=== PATIENT | female | born 1990 | race Caucasian/White ===

== ENCOUNTER → 2016-07-14 | Outpatient (CLI) | payer OTHER ==
[~2016-07-14] MED LIST: ACET50TA PO; IBUP80TA PO; VITAPRTA PO
[2016-07-14 15:28] LABS: THYROXINE (T4) 7.8 UG/DL (4.5-12.0)
[2016-07-14 15:42] LABS: ESTRADIOL 57.1 PG/ML; PROLACTIN 6.2 NG/ML
== END ==
LOC: M WUC 13:29
PROVIDERS: ATTEND Advanced Practice Midwife
DX: Z31.61 Procreative counseling and advice using natural family planning (principal)

== ENCOUNTER 2016-08-18 10:58 | Emergency (ER) | payer MEDICAID, OTHER ==
[2016-08-18 11:56] LABS: BASO % 0.4 % (0.0-1.0); EOS # 0.1 K/mm3 (0.0-0.50); EOS % 0.9 % (0.0-3.0); LARGE UNSTAINED CELL # 0.1 K/mm3 (0.0-0.4); LYMPH # 1.1 K/mm3 (1.5-6.5); LYMPH % 15.3 % (24.0-44.0); MEAN CORPUSCULAR HEMOGLOBIN 29.4 pg (27.0-33.0); MEAN CORPUSCULAR HGB CONC 34.5 g/dl (32.0-36.5); MEAN CORPUSCULAR VOLUME 85.3 fl (80.0-96.0); MONO # 0.3 K/mm3 (0.0-0.8); MONO % 4.9 % (0.0-5.0); NEUTROPHILS # 5.4 K/mm3 (1.8-7.7); NEUTROPHILS % 76.5 % (36.0-66.0); PLATELET COUNT, AUTOMATED 375 k/mm3 (150-450); RED CELL DISTRIBUTION WIDTH 11.9 % (11.5-14.5)
[2016-08-18 12:32] LABS: ANION GAP 10 MEQ/L (8-16); BLOOD UREA NITROGEN 9 MG/DL (7-18); CALCIUM LEVEL 8.8 MG/DL (8.5-10.1); CARBON DIOXIDE LEVEL 24 MEQ/L (21-32); CHLORIDE LEVEL 107 MEQ/L (98-107); CREATININE FOR GFR 0.73 MG/DL (0.55-1.02); GLOMERULAR FILTRATION RATE > 60.0 (>60); GLUCOSE, FASTING 96 MG/DL (70-105); HCG, SERUM QUANTITATIVE 2851 MIU/ML; POTASSIUM SERUM 3.8 MEQ/L (3.5-5.1); SODIUM LEVEL 141 MEQ/L (136-145)
--- NOTE | 2016-08-18 13:00 | REP ---
Clinical: Dating and viability. Technique: Transabdominal and transvaginal first trimester obstetrical ultrasound with color Doppler evaluation. Findings: Uterus measures at 8.8 x 4.4 x 5.8 cm and includes a 1 cm cystic structure without yolk sac or pole which may reflect a gestational sac or pseudo gestational sac. Based on MSD of 9 mm gestational age would be 5 weeks 5 days. The maternal ovaries are normal in appearance and vascularity without torsion. Right ovary measures 3.6 x 1.8 x 2.3 cm; RI equal 0.36. Left ovary measures 3.7 x 2.2 x 2.1 cm; RI equals 0.50. No pelvic free fluid. Impression: Empty gestational sac versus pseudogestational sac measuring at 5 weeks 5 days gestational age. Differential diagnosis includes early as well as blighted ovum and less likely ectopic which cannot be excluded. Correlation with serial HCG levels recommended. Signed by Everett Howell MD 08/18/2016 12:50 P
--- NOTE | 2016-08-18 13:15 | EDDOCDS ---
Nurse's Notes [facility] Name: Marylu Morton Age: 25 yrs Sex: Female : 1990 Arrival Date: 08/18/2016 Time: 10:58 Bed PR Private MD: NO PRIMARY PHYSICIAN, . Diagnosis: state-5w5d ON U.S Presentation: 08/18 11:01 Presenting complaint: Patient states: 8 weeks light flow vaginal bleeding mlb1 began yesterday. Risk factors: The patient reports no loss of conciousness prior to arrival. This patient has not had a hysterectomy. This patient has not begun menopause. Adult Sepsis Screening: The patient does not have new or worsening altered mentation. Patient's respiratory rate is less than 22. Systolic blood pressure is greater than 100. Patient has a qSOFA score of 0- Negative Sepsis Screen. Suicide/Homicide risk assessment- the patient denies having any suicidal and/or homicidal ideations and does not present with any other emotional, behavioral or mental health complaints. Status: Patient is not a guest services lead or dependent. Transition of care: patient was not received from another setting of care. 11:01 Acuity: JOVANNY Level 3 mlb1 11:01 Method Of Arrival: Walkin/Carried/Asstd mlb1 Triage Assessment: 11:03 General: Appears in no apparent distress, Behavior is appropriate for age, cooperative. mlb1 Pain: Denies pain. HIV screening NA for this visit Offered previously. : Reports vaginal bleeding that is light flow. Derm: No deficits noted. 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 Vitamin Oral 1 tab once daily - PMHx: none; - PSHx: Adenoidectomy; Tonsillectomy; left ear; - Social history: Smoking status: Patient states former smoker of tobacco. No barriers to communication noted, The patient speaks fluent Maltese, Speaks appropriately for age. - Family history: Not pertinent. - : The pt / caregiver states he / she is not on anticoagulants. Home medication list is obtained from the patient. - Exposure Risk Screening:: None identified. Screenin:13 Screening information is obtained from the patient. Fall risk: No risks identified. mcp Assistance ADL's: requires no assistance with activities of daily living. Abuse/DV Screen: The patient / caregiver reports he/she is: not in a situation that causes fear, pain or injury. Nutritional screening: No deficits noted. Advance Directives: There is no active DNR order. home support is adequate. Assessment: 13:12 General: Appears in no apparent distress, comfortable, Behavior is cooperative. Pain: mcp Denies pain. Neurological: No deficits noted. Respiratory: Airway is patent Respiratory effort is even, unlabored. : deferred to provider Reports vaginal bleeding that is light flow. Derm: Skin is pink, warm & dry. Vital Signs: 11:00 BP 142 / 76; Pulse 118; Resp 18 S; Temp 99.2(O); Pulse Ox 100% on R/A; Weight 61.23 kg gr2 (R); Height 5 ft. 3 in. (160.02 cm) (R); Pain 3/10; 13:13 BP 121 / 77; Pulse 103; Resp 18; Temp 99.6(O); Pulse Ox 95% on R/A; Pain 0/10; mcp 11:00 Body Mass Index 23.91 (61.23 kg, 160.02 cm) gr2 Vitals: 11:00 Log In Time: August 18, 2016 at 11:00. gr2 ED Course: 10:59 Patient visited by Petty Alvarez. gr2 10:59 NO PRIMARY PHYSICIAN, . is Private Physician. gr2 10:59 Patient moved to Waiting gr2 11:01 Patient visited by Petty Alvarez. gr2 11:01 Patient visited by Evert Ramírez, IRASEMA. mlb1 11:01 Patient moved to Pre RCE gr2 11:02 Triage Initiated mlb1 11:04 Patient visited by Evert Ramírez, IRASEMA. mlb1 11:04 Patient moved to Triage 2 mlb1 11:20 Xiomara Ruiz PA-C is PHCP. dt4 11:20 Ida Grimm MD is Attending Physician. dt4 11:20 Patient visited by Xiomara Ruiz PA-C. dt4 11:44 UA Sent. mcp 11:44 Hcg, Serum Quantitative Sent. mcp 11:44 Basic Metabolic Profile Sent. mcp 11:44 CBC with Diff Sent. mcp 11:44 Type & Screen Sent. mcp 11:46 Patient moved to TR8 mcp 11:56 Patient visited by Clarita Shelton, RN. mcp 11:56 Patient moved to TR2 mcp 12:02 Patient moved to Ultrasound eg2 12:28 Patient moved to TR2 eg2 12:35 Patient visited by Syl Wild RN. ck1 12:48 [facility] Payment Agreement was scanned into [employer] and attached to record. lg 12:59 Ajay Day MD is Referral Physician. dt4 13:02 Patient moved to PR ck1 13:10 US 1st trimester Returned. EDMS 13:13 The patient / caregiver is instructed regarding the plan of care and ED course. Patient mcp has correct armband on for positive identification. Bed in low position. Call light in reach. Side rails up X 1. 13:13 No IV's were initiated during this patient's visit. No procedures done that require mcp assistance. Order Results: Lab Order: Type & Screen; SPEC'M 08/18/16 11:43 Test: BLOOD TYPE; Value: A POS; Status: F Test: AB SCREEN (INDIRECT SMITHA)VIS; Value: NEGATIVE; Status: F Lab Order: CBC with Diff; SPEC'M 08/18/16 11:43 Test: WHITE BLOOD COUNT; Value: 7.0; Range: 4.0-10.0; Units: K/mm3; Status: F Test: RED BLOOD COUNT; Value: 4.84; Range: 4.00-5.40; Units: M/mm3; Status: F Test: HEMOGLOBIN; Value: 14.3; Range: 12.0-16.0; Units: g/dl; Status: F Test: HEMATOCRIT; Value: 41.3; Range: 36.0-47.0; Units: %; Status: F Test: MEAN CORPUSCULAR VOLUME; Value: 85.3; Range: 80.0-96.0; Units: fl; Status: F Test: MEAN CORPUSCULAR HEMOGLOBIN; Value: 29.4; Range: 27.0-33.0; Units: pg; Status: F Test: MEAN CORPUSCULAR HGB CONC; Value: 34.5; Range: 32.0-36.5; Units: g/dl; Status: F Test: RED CELL DISTRIBUTION WIDTH; Value: 11.9; Range: 11.5-14.5; Units: %; Status: F Test: PLATELET COUNT, AUTOMATED; Value: 375; Range: 150-450; Units: k/mm3; Status: F Test: NEUTROPHILS %; Value: 76.5; Range: 36.0-66.0; Abnormal: Above high normal; Units: %; Status: F Test: LYMPH %; Value: 15.3; Range: 24.0-44.0; Abnormal: Below low normal; Units: %; Status: F Test: MONO %; Value: 4.9; Range: 0.0-5.0; Units: %; Status: F Test: EOS %; Value: 0.9; Range: 0.0-3.0; Units: %; Status: F Test: BASO %; Value: 0.4; Range: 0.0-1.0; Units: %; Status: F Test: LARGE UNSTAINED CELL %; Value: 2.0; Range: 0.0-4.0; Units: %; Status: F Test: NEUTROPHILS #; Value: 5.4; Range: 1.8-7.7; Units: K/mm3; Status: F Test: LYMPH #; Value: 1.1; Range: 1.5-6.5; Abnormal: Below low normal; Units: K/mm3; Status: F Test: MONO #; Value: 0.3; Range: 0.0-0.8; Units: K/mm3; Status: F Test: EOS #; Value: 0.1; Range: 0.0-0.50; Units: K/mm3; Status: F Test: BASO #; Value: 0.0; Range: 0.0-0.2; Units: K/mm3; Status: F Test: LARGE UNSTAINED CELL #; Value: 0.1; Range: 0.0-0.4; Units: K/mm3; Status: F Lab Order: Basic Metabolic Profile; SPEC'M 08/18/16 11:43 Test: GLUCOSE, FASTING; Value: 96; Range: 70-105; Units: MG/DL; Status: F Test: BLOOD UREA NITROGEN; Value: 9; Range: 7-18; Units: MG/DL; Status: F Test: CREATININE FOR GFR; Value: 0.73; Range: 0.55-1.02; Units: MG/DL; Status: F Test: GLOMERULAR FILTRATION RATE; Value: > 60.0; Range: >60; Status: F Test: SODIUM LEVEL; Value: 141; Range: 136-145; Units: MEQ/L; Status: F Test: POTASSIUM SERUM; Value: 3.8; Range: 3.5-5.1; Units: MEQ/L; Status: F Test: CHLORIDE LEVEL; Value: 107; Range: 98-107; Units: MEQ/L; Status: F Test: CARBON DIOXIDE LEVEL; Value: 24; Range: 21-32; Units: MEQ/L; Status: F Test: ANION GAP; Value: 10; Range: 8-16; Units: MEQ/L; Status: F Test: CALCIUM LEVEL; Value: 8.8; Range: 8.5-10.1; Units: MG/DL; Status: F Test Note: ; Units are mL/min/1.73 m2 Chronic Kidney Disease Staging per NKF: Stage I & II GFR >=60 Normal to Mildly Decreased Stage III GFR 30-59 Moderately Decreased Stage IV GFR 15-29 Severely Decreased Stage V GFR <15 Very Little GFR Left ESRD GFR <15 on VISITOR INFORMATION ASSISTANT Lab Order: Hcg, Serum Quantitative; SPEC'M 08/18/16 11:43 Test: HCG, SERUM QUANTITATIVE; Value: 2851; Units: MIU/ML; Status: F Test Note: ; GESTATIONAL AGE APPROXIMATE HCG RANGE (MIU/ML) 0.2-1 WEEK 5-50 1-2 WEEKS 50-500 2-3 WEEKS 100-5,000 3-4 WEEKS 500-10,000 4-5 WEEKS 1,000-50,000 5-6 WEEKS 10,000-100,000 6-8 WEEKS 15,000-200,000 2-3 MONTHS 10,000-100,000 NON FEMALES LESS THAN 3.0 Patient samples may contain human heterophilic antibodies that could react with immunoassays to give falsely elevated or depressed results. This assay has been designed to minimize interference from heterophilic antibodies. Elevated hCG levels have also been associated with trophoblastic disease and nontrophoblastic neoplasms. The possibility of having these diseases should be considered before a diagnosis of is made. This test is not intended for use as a surrogate marker for aiding in the diagnosis or monitoring the treatment of cancer patients. Wordy methodology. Lab Order: UA; SPEC'M 08/18/16 11:43 Test: APPEARANCE, URINE; Value: CLEAR; Range: CLEAR; Status: F Test: COLOR, URINE; Value: COLORLESS; Range: YELLOW; Status: F Test: PH,URINE; Value: 6.0; Range: 5.0-9.0; Units: UNITS; Status: F Test: SPECIFIC GRAVITY URINE AUTO; Value: 1.001; Range: 1.002-1.035; Abnormal: Below low normal; Status: F Test: PROTEIN, URINE AUTO; Value: NEGATIVE; Range: NEGATIVE; Units: mg/dL; Status: F Test: GLUCOSE, URINE (UA) AUTO; Value: NEGATIVE; Range: NEGATIVE; Units: mg/dL; Status: F Test: KETONE, URINE AUTO; Value: NEGATIVE; Range: NEGATIVE; Units: mg/dL; Status: F Test: UROBILINOGEN, URINE AUTO; Value: 0.2; Range: 0.0-2.0; Units: mg/dL; Status: F Test: BILIRUBIN, URINE AUTO; Value: NEGATIVE; Range: NEGATIVE; Status: F Test: NITRITE, URINE AUTO; Value: NEGATIVE; Range: NEGATIVE; Status: F Test: LEUKOCYTE ESTERASE, URINE AUTO; Value: NEGATIVE; Range: NEGATIVE; Status: F Test: BLOOD, URINE BLOOD; Value: 2+; Range: NEGATIVE; Abnormal: Above high normal; Status: F Test: WBC, URINE AUTO; Value: 0; Range: 0-3; Units: /HPF; Status: F Test: RBC, URINE AUTO; Value: 1; Range: 0-3; Units: /HPF; Status: F Test: BACTERIA, URINE AUTO; Value: 1+; Range: NEGATIVE; Abnormal: Above high normal; Status: F Test: SQUAMOUS EPITHELIAL CELL UR AU; Value: 0; Range: 0-6; Units: /HPF; Status: F Test: HYALINE CAST, URINE AUTO; Value: 0; Range: 0-1; Units: /LPF; Status: F Radiology Order: US 1st trimester Test: US 1st trimester REASON FOR EXAMINATION: EARLY PREG, VAG BLEEDING; Clinical: Dating and viability.; ; Technique: Transabdominal and transvaginal first trimester obstetrical; ultrasound with color Doppler evaluation.; ; Findings:; Uterus measures at 8.8 x 4.4 x 5.8 cm and includes a 1 cm cystic structure; without yolk sac or pole which may reflect a gestational sac or pseudo; gestational sac. Based on MSD of 9 mm gestational age would be 5 weeks 5 days.; The maternal ovaries are normal in appearance and vascularity without torsion.; Right ovary measures 3.6 x 1.8 x 2.3 cm; RI equal 0.36. Left ovary measures 3.7; x 2.2 x 2.1 cm; RI equals 0.50. No pelvic free fluid.; ; Impression:; Empty gestational sac versus pseudogestational sac measuring at 5 weeks 5 days; gestational age. Differential diagnosis includes early as well as; blighted ovum and less likely ectopic which cannot be excluded.; Correlation with serial HCG levels recommended.; ; ; Signed by; Everett Howell MD 08/18/2016 12:50 P; Outcome: 13:00 Discharge ordered by Provider. dt4 13:13 Discharge Assessment: patient administered narcotics - no. The following High Risk [facility] Discharge criteria are identified: None. Discharged to home ambulatory. Condition: stable. Discharge instructions given to patient, Instructed on discharge instructions, follow up and referral plans. Demonstrated understanding of instructions, Pt was receptive of discharge instructions/ teaching. Ultrasound Study completed. Property sent home with patient. 13:14 Patient left the ED. [facility] Signatures: Dispatcher [employer] Clarita Melissa RN RN mcp Ganter, LoriLee, Evret Lebron lg RN RN mlb1 Syl Wild RN RN ck1 Gali Recinos egPetty Bergman gr2 Xiomara Ruiz, PA-Vane PA-C dt4 MTDAron
--- NOTE | 2016-08-18 13:15 | EDDOCDS ---
Physician Documentation [facility] Name: Marylu Morton Age: 25 yrs Sex: Female : 1990 Arrival Date: 08/18/2016 Time: 10:58 Bed PR Private MD: NO PRIMARY PHYSICIAN, . Disposition: 08/18/16 13:00 Discharged to Home/Self Care. Impression: state - 5w5d ON U.S. - Condition is Stable. - Discharge Instructions: First Trimester of . - Medication Reconciliation, Local Pharmacy Hours form. - Follow up: Emergency Department; When: As needed; Reason: Worsening of conditions. Follow up: Ajay Chawla MD; When: AT YOUR SCHEDULED APPOINTMENT ON 08/30/16; Reason: Wound/Symptom Recheck, Further diagnostic work-up, Recheck today's complaints, Continuance of care, To establish care. - Problem is new. - Symptoms are unchanged. - Notes: YOUR ULTRASOUND SHOWED AN EMPTY GESTATIONAL SAC, IN THE UTERUS, MEASURING 5 WEEKS, 5 DAYS. BECAUSE THIS IS VERY EARLY, IT MAY BE A VIABLE , BUT IT ALSO MAY BE A NON-VIABLE . PLEASE RETURN TO THE HOSPITAL, TO THE OUT-PATIENT LAB, ON 08/20/16, AFTER 12:00PM TO HAVE YOUR (HCG) LEVEL DRAWN AGAIN. YOUR HORMONE LEVEL SHOULD DOUBLEAT THAT TIME IF THIS IS NORMAL DEVELOPING . THAT INFORMATION WILL BE SENT TO DR. CHAWLA'S OFFICE AND YOU WILL FOLLOW UP WITH HIM. ANY WORSENING SYMPTOMS, PLEASE RETURN TO THE ER. Historical: - Allergies: no known allergies; - Home Meds: 1. Vitamin Oral 1 tab once daily - PMHx: none; - PSHx: Adenoidectomy; Tonsillectomy; left ear; - Social history: Smoking status: Patient states former smoker of tobacco. No barriers to communication noted, The patient speaks fluent Kinyarwanda, Speaks appropriately for age. - Family history: Not pertinent. - : The pt / caregiver states he / she is not on anticoagulants. Home medication list is obtained from the patient. - Exposure Risk Screening:: None identified. 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 3 in. (160.02 cm) (R); Pain 3/10; 13:13 BP 121 / 77; Pulse 103; Resp 18; Temp 99.6(O); Pulse Ox 95% on R/A; Pain 0/10; mcp 11:00 Body Mass Index 23.91 (61.23 kg, 160.02 cm) gr2 MDM: 11:36 Type & Screen Ordered. EDMS 11:36 CBC with Diff Ordered. EDMS 11:36 Basic Metabolic Profile Ordered. EDMS 11:36 Hcg, Serum Quantitative Ordered. EDMS 11:36 UA Ordered. EDMS 11:36 US 1st trimester Ordered. EDMS 11:47 Financial registration complete. lg 12:12 TRANSVAGINAL US Ordered. EDMS 12:12 DUPLEX SCAN LIMITED (DOPPLER) Ordered. EDMS 12:48 [facility] [place] Agreement was scanned into [employer] and attached to record. lg Signatures: Dispatcher [employer] EDClarita Kramer, RN RN Tony Chilel, Reg Reg lg Evert Ramírez RN RN mlb1 Xiomara Ruiz, JOCELYN BANKS dt4 The chart was reviewed and I authenticate all verbal orders and agree with the evaluation and treatment provided.Attachments: 12:48 [facility] [place] Agreement lg MTDD
--- NOTE | 2016-08-20 14:15 | EDDOCDS ---
Physician Documentation [facility] Name: Marylu Morton Age: 25 yrs Sex: Female : 1990 Arrival Date: 08/18/2016 Time: 10:58 Bed PR Private MD: NO PRIMARY PHYSICIAN, . Disposition: 08/18/16 13:00 Discharged to Home/Self Care. Impression: state - 5w5d ON U.S. - Condition is Stable. - Discharge Instructions: First Trimester of . - Medication Reconciliation, Local Pharmacy Hours form. - Follow up: Emergency Department; When: As needed; Reason: Worsening of conditions. Follow up: Ajay Chawla MD; When: AT YOUR SCHEDULED APPOINTMENT ON 08/30/16; Reason: Wound/Symptom Recheck, Further diagnostic work-up, Recheck today's complaints, Continuance of care, To establish care. - Problem is new. - Symptoms are unchanged. - Notes: YOUR ULTRASOUND SHOWED AN EMPTY GESTATIONAL SAC, IN THE UTERUS, MEASURING 5 WEEKS, 5 DAYS. BECAUSE THIS IS VERY EARLY, IT MAY BE A VIABLE , BUT IT ALSO MAY BE A NON-VIABLE . PLEASE RETURN TO THE HOSPITAL, TO THE OUT-PATIENT LAB, ON 08/20/16, AFTER 12:00PM TO HAVE YOUR (HCG) LEVEL DRAWN AGAIN. YOUR HORMONE LEVEL SHOULD DOUBLEAT THAT TIME IF THIS IS NORMAL DEVELOPING . THAT INFORMATION WILL BE SENT TO DR. CHAWLA'S OFFICE AND YOU WILL FOLLOW UP WITH HIM. ANY WORSENING SYMPTOMS, PLEASE RETURN TO THE ER. Historical: - Allergies: no known allergies; - Home Meds: 1. Vitamin Oral 1 tab once daily - PMHx: none; - PSHx: Adenoidectomy; Tonsillectomy; left ear; - Social history: Smoking status: Patient states former smoker of tobacco. No barriers to communication noted, The patient speaks fluent Slovenian, Speaks appropriately for age. - Family history: Not pertinent. - : The pt / caregiver states he / she is not on anticoagulants. Home medication list is obtained from the patient. - Exposure Risk Screening:: None identified. 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 3 in. (160.02 cm) (R); Pain 3/10; 13:13 BP 121 / 77; Pulse 103; Resp 18; Temp 99.6(O); Pulse Ox 95% on R/A; Pain 0/10; mcp 11:00 Body Mass Index 23.91 (61.23 kg, 160.02 cm) gr2 MDM: 11:36 Type & Screen Ordered. EDMS 11:36 CBC with Diff Ordered. EDMS 11:36 Basic Metabolic Profile Ordered. EDMS 11:36 Hcg, Serum Quantitative Ordered. EDMS 11:36 UA Ordered. EDMS 11:36 US 1st trimester Ordered. EDMS 11:47 Financial registration complete. lg 12:12 TRANSVAGINAL US Ordered. EDMS 12:12 DUPLEX SCAN LIMITED (DOPPLER) Ordered. EDMS 12:48 [facility] Payment Agreement was scanned into [employer] and attached to record. 08/20 08:45 T-Sheet-- Draft Copy was scanned into [employer] and attached to record. lg 08:47 Radiology Report was scanned into [employer] and attached to record. lg Signatures: Dispatcher [employer] Clarita Melissa, RN Tony Deluca mcp, Reg Reg lg Evert Ramírez RN RN mlb1 Xiomara Ruiz, PAAriel PAAriel dt4 The chart was reviewed and I authenticate all verbal orders and agree with the evaluation and treatment provided.Attachments: 08/18 12:48 [facility] Payment Agreement lg 08/20 08:45 T-Sheet-- Draft Copy lg Chart Complete MTDD
--- NOTE | 2016-08-20 14:15 | EDDOCDS ---
Nurse's Notes [facility] Name: Marylu Morton Age: 25 yrs Sex: Female : 1990 Arrival Date: 08/18/2016 Time: 10:58 Bed PR Private MD: NO PRIMARY PHYSICIAN, . Diagnosis: state-5w5d ON U.S Presentation: 08/18 11:01 Presenting complaint: Patient states: 8 weeks light flow vaginal bleeding mlb1 began yesterday. Risk factors: The patient reports no loss of conciousness prior to arrival. This patient has not had a hysterectomy. This patient has not begun menopause. Adult Sepsis Screening: The patient does not have new or worsening altered mentation. Patient's respiratory rate is less than 22. Systolic blood pressure is greater than 100. Patient has a qSOFA score of 0- Negative Sepsis Screen. Suicide/Homicide risk assessment- the patient denies having any suicidal and/or homicidal ideations and does not present with any other emotional, behavioral or mental health complaints. Status: Patient is not a patient services representative or dependent. Transition of care: patient was not received from another setting of care. 11:01 Acuity: JOVANNY Level 3 mlb1 11:01 Method Of Arrival: Walkin/Carried/Asstd mlb1 Triage Assessment: 11:03 General: Appears in no apparent distress, Behavior is appropriate for age, cooperative. mlb1 Pain: Denies pain. HIV screening NA for this visit Offered previously. : Reports vaginal bleeding that is light flow. Derm: No deficits noted. 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 Vitamin Oral 1 tab once daily - PMHx: none; - PSHx: Adenoidectomy; Tonsillectomy; left ear; - Social history: Smoking status: Patient states former smoker of tobacco. No barriers to communication noted, The patient speaks fluent Uzbek, Speaks appropriately for age. - Family history: Not pertinent. - : The pt / caregiver states he / she is not on anticoagulants. Home medication list is obtained from the patient. - Exposure Risk Screening:: None identified. Screenin:13 Screening information is obtained from the patient. Fall risk: No risks identified. mcp Assistance ADL's: requires no assistance with activities of daily living. Abuse/DV Screen: The patient / caregiver reports he/she is: not in a situation that causes fear, pain or injury. Nutritional screening: No deficits noted. Advance Directives: There is no active DNR order. home support is adequate. Assessment: 13:12 General: Appears in no apparent distress, comfortable, Behavior is cooperative. Pain: mcp Denies pain. Neurological: No deficits noted. Respiratory: Airway is patent Respiratory effort is even, unlabored. : deferred to provider Reports vaginal bleeding that is light flow. Derm: Skin is pink, warm & dry. Vital Signs: 11:00 BP 142 / 76; Pulse 118; Resp 18 S; Temp 99.2(O); Pulse Ox 100% on R/A; Weight 61.23 kg gr2 (R); Height 5 ft. 3 in. (160.02 cm) (R); Pain 3/10; 13:13 BP 121 / 77; Pulse 103; Resp 18; Temp 99.6(O); Pulse Ox 95% on R/A; Pain 0/10; mcp 11:00 Body Mass Index 23.91 (61.23 kg, 160.02 cm) gr2 Vitals: 11:00 Log In Time: August 18, 2016 at 11:00. gr2 ED Course: 10:59 Patient visited by Petty Alvarez. gr2 10:59 NO PRIMARY PHYSICIAN, . is Private Physician. gr2 10:59 Patient moved to Waiting gr2 11:01 Patient visited by Petty Alvarez. gr2 11:01 Patient visited by Evert Ramírez, IRASEMA. mlb1 11:01 Patient moved to Pre RCE gr2 11:02 Triage Initiated mlb1 11:04 Patient visited by Evert Ramírez, IRASEMA. mlb1 11:04 Patient moved to Triage 2 mlb1 11:20 Xiomara Ruiz PA-C is PHCP. dt4 11:20 Ida Grimm MD is Attending Physician. dt4 11:20 Patient visited by Xiomara Ruiz PA-C. dt4 11:44 UA Sent. mcp 11:44 Hcg, Serum Quantitative Sent. mcp 11:44 Basic Metabolic Profile Sent. mcp 11:44 CBC with Diff Sent. mcp 11:44 Type & Screen Sent. mcp 11:46 Patient moved to TR8 mcp 11:56 Patient visited by Clarita Shelton, RN. mcp 11:56 Patient moved to TR2 mcp 12:02 Patient moved to Ultrasound eg2 12:28 Patient moved to TR2 eg2 12:35 Patient visited by Syl Wild,IRASEMA. ck1 12:48 [facility] Payment Agreement was scanned into [employer] and attached to record. lg 12:59 Ajay Day MD is Referral Physician. dt4 13:02 Patient moved to PR ck1 13:10 US 1st trimester Returned. EDMS 13:13 The patient / caregiver is instructed regarding the plan of care and ED course. Patient mcp has correct armband on for positive identification. Bed in low position. Call light in reach. Side rails up X 1. 13:13 No IV's were initiated during this patient's visit. No procedures done that require mcp assistance. 08/20 08:45 T-Sheet-- Draft Copy was scanned into [employer] and attached to record. lg 08:47 Radiology Report was scanned into [employer] and attached to record. lg Order Results: Lab Order: Type & Screen; SPEC'M 08/18/16 11:43 Test: BLOOD TYPE; Value: A POS; Status: F Test: AB SCREEN (INDIRECT SMITHA)VIS; Value: NEGATIVE; Status: F Lab Order: CBC with Diff; SPEC'M 08/18/16 11:43 Test: WHITE BLOOD COUNT; Value: 7.0; Range: 4.0-10.0; Units: K/mm3; Status: F Test: RED BLOOD COUNT; Value: 4.84; Range: 4.00-5.40; Units: M/mm3; Status: F Test: HEMOGLOBIN; Value: 14.3; Range: 12.0-16.0; Units: g/dl; Status: F Test: HEMATOCRIT; Value: 41.3; Range: 36.0-47.0; Units: %; Status: F Test: MEAN CORPUSCULAR VOLUME; Value: 85.3; Range: 80.0-96.0; Units: fl; Status: F Test: MEAN CORPUSCULAR HEMOGLOBIN; Value: 29.4; Range: 27.0-33.0; Units: pg; Status: F Test: MEAN CORPUSCULAR HGB CONC; Value: 34.5; Range: 32.0-36.5; Units: g/dl; Status: F Test: RED CELL DISTRIBUTION WIDTH; Value: 11.9; Range: 11.5-14.5; Units: %; Status: F Test: PLATELET COUNT, AUTOMATED; Value: 375; Range: 150-450; Units: k/mm3; Status: F Test: NEUTROPHILS %; Value: 76.5; Range: 36.0-66.0; Abnormal: Above high normal; Units: %; Status: F Test: LYMPH %; Value: 15.3; Range: 24.0-44.0; Abnormal: Below low normal; Units: %; Status: F Test: MONO %; Value: 4.9; Range: 0.0-5.0; Units: %; Status: F Test: EOS %; Value: 0.9; Range: 0.0-3.0; Units: %; Status: F Test: BASO %; Value: 0.4; Range: 0.0-1.0; Units: %; Status: F Test: LARGE UNSTAINED CELL %; Value: 2.0; Range: 0.0-4.0; Units: %; Status: F Test: NEUTROPHILS #; Value: 5.4; Range: 1.8-7.7; Units: K/mm3; Status: F Test: LYMPH #; Value: 1.1; Range: 1.5-6.5; Abnormal: Below low normal; Units: K/mm3; Status: F Test: MONO #; Value: 0.3; Range: 0.0-0.8; Units: K/mm3; Status: F Test: EOS #; Value: 0.1; Range: 0.0-0.50; Units: K/mm3; Status: F Test: BASO #; Value: 0.0; Range: 0.0-0.2; Units: K/mm3; Status: F Test: LARGE UNSTAINED CELL #; Value: 0.1; Range: 0.0-0.4; Units: K/mm3; Status: F Lab Order: Basic Metabolic Profile; SPEC'M 08/18/16 11:43 Test: GLUCOSE, FASTING; Value: 96; Range: 70-105; Units: MG/DL; Status: F Test: BLOOD UREA NITROGEN; Value: 9; Range: 7-18; Units: MG/DL; Status: F Test: CREATININE FOR GFR; Value: 0.73; Range: 0.55-1.02; Units: MG/DL; Status: F Test: GLOMERULAR FILTRATION RATE; Value: > 60.0; Range: >60; Status: F Test: SODIUM LEVEL; Value: 141; Range: 136-145; Units: MEQ/L; Status: F Test: POTASSIUM SERUM; Value: 3.8; Range: 3.5-5.1; Units: MEQ/L; Status: F Test: CHLORIDE LEVEL; Value: 107; Range: 98-107; Units: MEQ/L; Status: F Test: CARBON DIOXIDE LEVEL; Value: 24; Range: 21-32; Units: MEQ/L; Status: F Test: ANION GAP; Value: 10; Range: 8-16; Units: MEQ/L; Status: F Test: CALCIUM LEVEL; Value: 8.8; Range: 8.5-10.1; Units: MG/DL; Status: F Test Note: ; Units are mL/min/1.73 m2 Chronic Kidney Disease Staging per NKF: Stage I & II GFR >=60 Normal to Mildly Decreased Stage III GFR 30-59 Moderately Decreased Stage IV GFR 15-29 Severely Decreased Stage V GFR <15 Very Little GFR Left ESRD GFR <15 on FRONT LOADER RESIDENTIAL DRIVER Lab Order: Hcg, Serum Quantitative; SPEC'M 08/18/16 11:43 Test: HCG, SERUM QUANTITATIVE; Value: 2851; Units: MIU/ML; Status: F Test Note: ; GESTATIONAL AGE APPROXIMATE HCG RANGE (MIU/ML) 0.2-1 WEEK 5-50 1-2 WEEKS 50-500 2-3 WEEKS 100-5,000 3-4 WEEKS 500-10,000 4-5 WEEKS 1,000-50,000 5-6 WEEKS 10,000-100,000 6-8 WEEKS 15,000-200,000 2-3 MONTHS 10,000-100,000 NON FEMALES LESS THAN 3.0 Patient samples may contain human heterophilic antibodies that could react with immunoassays to give falsely elevated or depressed results. This assay has been designed to minimize interference from heterophilic antibodies. Elevated hCG levels have also been associated with trophoblastic disease and nontrophoblastic neoplasms. The possibility of having these diseases should be considered before a diagnosis of is made. This test is not intended for use as a surrogate marker for aiding in the diagnosis or monitoring the treatment of cancer patients. Siemens Dónde methodology. Lab Order: UA; SPEC'M 08/18/16 11:43 Test: APPEARANCE, URINE; Value: CLEAR; Range: CLEAR; Status: F Test: COLOR, URINE; Value: COLORLESS; Range: YELLOW; Status: F Test: PH,URINE; Value: 6.0; Range: 5.0-9.0; Units: UNITS; Status: F Test: SPECIFIC GRAVITY URINE AUTO; Value: 1.001; Range: 1.002-1.035; Abnormal: Below low normal; Status: F Test: PROTEIN, URINE AUTO; Value: NEGATIVE; Range: NEGATIVE; Units: mg/dL; Status: F Test: GLUCOSE, URINE (UA) AUTO; Value: NEGATIVE; Range: NEGATIVE; Units: mg/dL; Status: F Test: KETONE, URINE AUTO; Value: NEGATIVE; Range: NEGATIVE; Units: mg/dL; Status: F Test: UROBILINOGEN, URINE AUTO; Value: 0.2; Range: 0.0-2.0; Units: mg/dL; Status: F Test: BILIRUBIN, URINE AUTO; Value: NEGATIVE; Range: NEGATIVE; Status: F Test: NITRITE, URINE AUTO; Value: NEGATIVE; Range: NEGATIVE; Status: F Test: LEUKOCYTE ESTERASE, URINE AUTO; Value: NEGATIVE; Range: NEGATIVE; Status: F Test: BLOOD, URINE BLOOD; Value: 2+; Range: NEGATIVE; Abnormal: Above high normal; Status: F Test: WBC, URINE AUTO; Value: 0; Range: 0-3; Units: /HPF; Status: F Test: RBC, URINE AUTO; Value: 1; Range: 0-3; Units: /HPF; Status: F Test: BACTERIA, URINE AUTO; Value: 1+; Range: NEGATIVE; Abnormal: Above high normal; Status: F Test: SQUAMOUS EPITHELIAL CELL UR AU; Value: 0; Range: 0-6; Units: /HPF; Status: F Test: HYALINE CAST, URINE AUTO; Value: 0; Range: 0-1; Units: /LPF; Status: F Radiology Order: US 1st trimester Test: US 1st trimester REASON FOR EXAMINATION: EARLY PREG, VAG BLEEDING; Clinical: Dating and viability.; ; Technique: Transabdominal and transvaginal first trimester obstetrical; ultrasound with color Doppler evaluation.; ; Findings:; Uterus measures at 8.8 x 4.4 x 5.8 cm and includes a 1 cm cystic structure; without yolk sac or pole which may reflect a gestational sac or pseudo; gestational sac. Based on MSD of 9 mm gestational age would be 5 weeks 5 days.; The maternal ovaries are normal in appearance and vascularity without torsion.; Right ovary measures 3.6 x 1.8 x 2.3 cm; RI equal 0.36. Left ovary measures 3.7; x 2.2 x 2.1 cm; RI equals 0.50. No pelvic free fluid.; ; Impression:; Empty gestational sac versus pseudogestational sac measuring at 5 weeks 5 days; gestational age. Differential diagnosis includes early as well as; blighted ovum and less likely ectopic which cannot be excluded.; Correlation with serial HCG levels recommended.; ; ; Signed by; Everett Howell MD 08/18/2016 12:50 P; Outcome: 08/18 13:00 Discharge ordered by Provider. dt4 13:13 Discharge Assessment: patient administered narcotics - no. The following High Risk [facility] Discharge criteria are identified: None. Discharged to home ambulatory. Condition: stable. Discharge instructions given to patient, Instructed on discharge instructions, follow up and referral plans. Demonstrated understanding of instructions, Pt was receptive of discharge instructions/ teaching. Ultrasound Study completed. Property sent home with patient. 13:14 Patient left the ED. [facility] Signatures: Dispatcher [employer] Clarita Melissa RN RN mcp Ganter, LoriLee, Evert Lebron lg RN RN mlb1 Syl Wild RN RN ck1 Gali Recinos eg2 Petty Alvarez gr2 Xiomara Ruiz, PA-Vane PA-C dt4 Chart Complete MTDD
--- NOTE | 2016-08-20 14:15 | EDDOCDS ---
Physician Documentation [facility] Name: Marylu Morton Age: 25 yrs Sex: Female : 1990 Arrival Date: 08/18/2016 Time: 10:58 Bed PR Private MD: NO PRIMARY PHYSICIAN, . Disposition: 08/18/16 13:00 Discharged to Home/Self Care. Impression: state - 5w5d ON U.S. - Condition is Stable. - Discharge Instructions: First Trimester of . - Medication Reconciliation, Local Pharmacy Hours form. - Follow up: Emergency Department; When: As needed; Reason: Worsening of conditions. Follow up: Ajay Chawla MD; When: AT YOUR SCHEDULED APPOINTMENT ON 08/30/16; Reason: Wound/Symptom Recheck, Further diagnostic work-up, Recheck today's complaints, Continuance of care, To establish care. - Problem is new. - Symptoms are unchanged. - Notes: YOUR ULTRASOUND SHOWED AN EMPTY GESTATIONAL SAC, IN THE UTERUS, MEASURING 5 WEEKS, 5 DAYS. BECAUSE THIS IS VERY EARLY, IT MAY BE A VIABLE , BUT IT ALSO MAY BE A NON-VIABLE . PLEASE RETURN TO THE HOSPITAL, TO THE OUT-PATIENT LAB, ON 08/20/16, AFTER 12:00PM TO HAVE YOUR (HCG) LEVEL DRAWN AGAIN. YOUR HORMONE LEVEL SHOULD DOUBLEAT THAT TIME IF THIS IS NORMAL DEVELOPING . THAT INFORMATION WILL BE SENT TO DR. CHAWLA'S OFFICE AND YOU WILL FOLLOW UP WITH HIM. ANY WORSENING SYMPTOMS, PLEASE RETURN TO THE ER. Historical: - Allergies: no known allergies; - Home Meds: 1. Vitamin Oral 1 tab once daily - PMHx: none; - PSHx: Adenoidectomy; Tonsillectomy; left ear; - Social history: Smoking status: Patient states former smoker of tobacco. No barriers to communication noted, The patient speaks fluent Welsh, Speaks appropriately for age. - Family history: Not pertinent. - : The pt / caregiver states he / she is not on anticoagulants. Home medication list is obtained from the patient. - Exposure Risk Screening:: None identified. 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 3 in. (160.02 cm) (R); Pain 3/10; 13:13 BP 121 / 77; Pulse 103; Resp 18; Temp 99.6(O); Pulse Ox 95% on R/A; Pain 0/10; mcp 11:00 Body Mass Index 23.91 (61.23 kg, 160.02 cm) gr2 MDM: 11:36 Type & Screen Ordered. EDMS 11:36 CBC with Diff Ordered. EDMS 11:36 Basic Metabolic Profile Ordered. EDMS 11:36 Hcg, Serum Quantitative Ordered. EDMS 11:36 UA Ordered. EDMS 11:36 US 1st trimester Ordered. EDMS 11:47 Financial registration complete. lg 12:12 TRANSVAGINAL US Ordered. EDMS 12:12 DUPLEX SCAN LIMITED (DOPPLER) Ordered. EDMS 12:48 [facility] [place] Payment Agreement was scanned into [employer] and attached to record. 08/20 08:45 T-Sheet-- Draft Copy was scanned into [employer] and attached to record. lg 08:47 Radiology Report was scanned into [employer] and attached to record. lg Signatures: Dispatcher [employer] Clarita Melissa, RN Tony Deluca mcp, Reg Reg lg Evert Ramírez RN RN mlb1 Xiomara Ruiz, PAAriel PAAriel dt4 The chart was reviewed and I authenticate all verbal orders and agree with the evaluation and treatment provided.Attachments: 08/18 12:48 [facility] [place] Payment Agreement lg 08/20 08:45 T-Sheet-- Draft Copy lg Chart Complete MTDD
== END 2016-08-18 13:14 | disposition home or self-care (01) ==
LOC: M ED 10:58
DX: O20.9 Hemorrhage in early pregnancy, unspecified (principal); Z3A.01 Less than 8 weeks gestation of pregnancy; Z79.899 Other long term (current) drug therapy; Z87.891 Personal history of nicotine dependence

== ENCOUNTER 2016-08-18 17:06 | Emergency (ER) | payer OTHER ==
[2016-08-18 18:05] LABS: MEAN CORPUSCULAR HEMOGLOBIN 29.6 pg (27.0-33.0); MEAN CORPUSCULAR HGB CONC 34.8 g/dl (32.0-36.5); MEAN CORPUSCULAR VOLUME 84.9 fl (80.0-96.0); RED CELL DISTRIBUTION WIDTH 11.7 % (11.5-14.5); WHITE BLOOD COUNT 8.1 K/mm3 (4.0-10.0)
--- NOTE | 2016-08-18 18:31 | EDDOCDS ---
Physician Documentation [facility] Name: Marylu Morton Age: 25 yrs Sex: Female : 1990 Arrival Date: 08/18/2016 Time: 17:06 Bed 7 Private MD: NO PRIMARY PHYSICIAN, . Disposition: 08/18/16 18:11 Discharged to Home/Self Care. Impression: Threatened . - Condition is Stable. - Discharge Instructions: Threatened Miscarriage, Pelvic Rest. - Medication Reconciliation, Local Pharmacy Hours form. - Follow up: Ajay Day MD; When: Call to arrange an appointment; Reason: Recheck today's complaints, Continuance of care. - Problem is an ongoing problem. - Symptoms are unchanged. Historical: - Allergies: No known drug Allergies; - Home Meds: 1. Vitamin Oral 1 tab once daily - PMHx: none; - PSHx: Adenoidectomy; Tonsillectomy; left ear; - Social history: Smoking status: Patient states former smoker of tobacco. No barriers to communication noted, The patient speaks fluent Angolan, Speaks appropriately for age. - Family history: Not pertinent. - : The pt / caregiver states he / she is not on anticoagulants. Home medication list is obtained from the patient. - Exposure Risk Screening:: None identified. 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 3 in. (160.02 cm); 18:29 BP 131 / 79; Pulse 104; Resp 18; Temp 99.0; Pulse Ox 96% on R/A; Pain 0/10; ttb 17:07 Body Mass Index 23.91 (61.23 kg, 160.02 cm) elp MDM: 17:15 CBC Ordered. EDMS 18:08 CBC Reviewed. stephanie Signatures: Dispatcher [employer] EDMS Ez Esparza FNP FNP ke Kim-Ashcraft, Connie, RN RN ck1 Hailey Paulino RN RN ttb The chart was reviewed and I authenticate all verbal orders and agree with the evaluation and treatment provided.Corrections: (The following items were deleted from the chart) 17: 17:15 TYPE & SCREEN+BBK ordered. EDMS EDMS 17: 17:15 HCG, SERUM QUANTITATIVE+LAB ordered. EDMS EDMS MTDD
--- NOTE | 2016-08-18 18:31 | EDDOCDS ---
Nurse's Notes [facility] Name: Marylu Morton Age: 25 yrs Sex: Female : 1990 Arrival Date: 08/18/2016 Time: 17:06 Bed 7 Private MD: NO PRIMARY PHYSICIAN, . Diagnosis: Threatened Presentation: 08/18 17:10 Presenting complaint: Patient states: Worsening vaginal bleeding, with lower abdominal ck1 pain. Patient is approximately 5 weeks . Seen here earlier today for same. Risk factors: The patient reports no loss of conciousness prior to arrival. This patient has not had a hysterectomy. This patient has not begun menopause. Adult Sepsis Screening: The patient does not have new or worsening altered mentation. Patient's respiratory rate is less than 22. Systolic blood pressure is greater than 100. Patient has a qSOFA score of 0- Negative Sepsis Screen. Suicide/Homicide risk assessment- the patient denies having any suicidal and/or homicidal ideations and does not present with any other emotional, behavioral or mental health complaints. Status: Patient is not a senior field service engineer or dependent. Transition of care: patient was not received from another setting of care. 17:10 Method Of Arrival: Walkin/Carried/Asstd ck1 17:10 Acuity: JOVANNY Level 3 ck1 Triage Assessment: 17:12 General: Appears in no apparent distress, comfortable, Behavior is appropriate for age, ck1 cooperative. Pain: Location: abdomen Pain currently is 1 out of 10 on a pain scale. HIV screening NA for this visit Offered previously. : Reports vaginal bleeding that is bright red with clots moderate flow. Derm: Skin is pink, warm & dry. 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 Vitamin Oral 1 tab once daily - PMHx: none; - PSHx: Adenoidectomy; Tonsillectomy; left ear; - Social history: Smoking status: Patient states former smoker of tobacco. No barriers to communication noted, The patient speaks fluent Japanese, Speaks appropriately for age. - Family history: Not pertinent. - : The pt / caregiver states he / she is not on anticoagulants. Home medication list is obtained from the patient. - Exposure Risk Screening:: None identified. Screenin:57 Screening information is obtained from the patient. Fall risk: No risks identified. ttb Assistance ADL's: requires no assistance with activities of daily living. Abuse/DV Screen: The patient / caregiver reports he/she is: not in a situation that causes fear, pain or injury. Nutritional screening: No deficits noted. Advance Directives: Currently, there is no health care proxy. home support is adequate. Assessment: 17:57 General: Appears in no apparent distress, well nourished, well groomed, Behavior is ttb appropriate for age, cooperative, pleasant. Pain: Denies pain. Neurological: Level of Consciousness is awake, alert. Cardiovascular: Chest pain is denied. Respiratory: Airway is patent Respiratory effort is even, unlabored, Denies cough, shortness of breath. GI: Denies nausea, vomiting, pain. : Urine is pt states heavier blood flow when she got home. Passed clot and now feels better. Derm: Skin is normal. Injury Description: No known injury. 18:29 Reassessment: Patient appears in no apparent distress at this time. 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 Pt ready for DC at this time.. Vital Signs: 17:07 BP 132 / 66; Pulse 104; Resp 20; Temp 99.5(O); Pulse Ox 99% on R/A; Weight 61.23 kg; elp Height 5 ft. 3 in. (160.02 cm); 18:29 BP 131 / 79; Pulse 104; Resp 18; Temp 99.0; Pulse Ox 96% on R/A; Pain 0/10; ttb 17:07 Body Mass Index 23.91 (61.23 kg, 160.02 cm) [facility] Vitals: 17:07 Log In Time: August 18, 2016 at 17:06. [facility] ED Course: 17:07 Patient visited by Gali Gutierrez PCA. elp 17:07 NO PRIMARY PHYSICIAN, . is Private Physician. elp 17:07 Patient moved to Waiting elp 17:08 Patient visited by Gali Gutierrez PCA. elp 17:08 Patient moved to Pre RCE elp 17:12 Triage Initiated ck1 17:16 Patient moved to 7 ck1 17:18 [facility] Esp[facility] FNP [facility]. ke 17:18 Patient visited by Ez Esparza FNP. ke 17:18 Patient visited by Ez Esparza FNP. ke 17:51 Patient visited by Ez Esparza FNP. ke 17:57 The patient / caregiver is instructed regarding the plan of care and ED course. ttb Accompanied by Significant Other, Patient has correct armband on for positive identification. Placed in gown. Call light in reach. 17:57 CBC Sent. ttb 17:57 No IV's were initiated during this patient's visit. No procedures done that require ttb assistance. Labs drawn. (by ED staff). 18:11 Ajay Day MD is Referral Physician. ke Order Results: Lab Order: CBC; SPEC'M 08/18/16 17:53 Test: WHITE BLOOD COUNT; Value: 8.1; Range: 4.0-10.0; Units: K/mm3; Status: F Test: RED BLOOD COUNT; Value: 4.50; Range: 4.00-5.40; Units: M/mm3; Status: F Test: HEMOGLOBIN; Value: 13.3; Range: 12.0-16.0; Units: g/dl; Status: F Test: HEMATOCRIT; Value: 38.2; Range: 36.0-47.0; Units: %; Status: F Test: MEAN CORPUSCULAR VOLUME; Value: 84.9; Range: 80.0-96.0; Units: fl; Status: F Test: MEAN CORPUSCULAR HEMOGLOBIN; Value: 29.6; Range: 27.0-33.0; Units: pg; Status: F Test: MEAN CORPUSCULAR HGB CONC; Value: 34.8; Range: 32.0-36.5; Units: g/dl; Status: F Test: RED CELL DISTRIBUTION WIDTH; Value: 11.7; Range: 11.5-14.5; Units: %; Status: F Test: PLATELET COUNT, AUTOMATED; Value: 350; Range: 150-450; Units: k/mm3; Status: F Outcome: 17:57 No special radiology studies were completed. ttb 18:11 Discharge ordered by Provider. ke 18:29 Discharge Assessment: Patient awake, alert and oriented x 3. No cognitive and/or ttb functional deficits noted. Patient verbalized understanding of disposition instructions. Patient awake and alert. patient administered narcotics - no. The following High Risk Discharge criteria are identified: None. Discharged to home ambulatory, with significant other. Condition: good Condition: stable Condition: improved. Discharge instructions given to patient, significant other, Instructed on discharge instructions, follow up and referral plans. medication usage, diet, safe sex practices, safety practices, Demonstrated understanding of instructions, medications, no heavy lifting, strenuous exercise, increase fluids Pt was receptive of discharge instructions/ teaching. Property :Personal belongings accompany Pt. 18:30 Patient left the ED. ttb Signatures: Ez Esparza, ROLLER TURNER Syl Long,RN RN ck1 Hailey Paulino RN RN ttb Gali Gutierrez, BATTER SCALER BATTER SCALER elp MTDD
--- NOTE | 2016-08-20 19:31 | EDDOCDS ---
Physician Documentation [facility] Name: Marylu Morton Age: 25 yrs Sex: Female : 1990 Arrival Date: 08/18/2016 Time: 17:06 Bed 7 Private MD: NO PRIMARY PHYSICIAN, . Disposition: 08/18/16 18:11 Discharged to Home/Self Care. Impression: Threatened . - Condition is Stable. - Discharge Instructions: Threatened Miscarriage, Pelvic Rest. - Medication Reconciliation, Local Pharmacy Hours form. - Follow up: Ajay Day MD; When: Call to arrange an appointment; Reason: Recheck today's complaints, Continuance of care. - Problem is an ongoing problem. - Symptoms are unchanged. Historical: - Allergies: No known drug Allergies; - Home Meds: 1. Vitamin Oral 1 tab once daily - PMHx: none; - PSHx: Adenoidectomy; Tonsillectomy; left ear; - Social history: Smoking status: Patient states former smoker of tobacco. No barriers to communication noted, The patient speaks fluent Taiwanese, Speaks appropriately for age. - Family history: Not pertinent. - : The pt / caregiver states he / she is not on anticoagulants. Home medication list is obtained from the patient. - Exposure Risk Screening:: None identified. 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 3 in. (160.02 cm); 18:29 BP 131 / 79; Pulse 104; Resp 18; Temp 99.0; Pulse Ox 96% on R/A; Pain 0/10; ttb 17:07 Body Mass Index 23.91 (61.23 kg, 160.02 cm) elp MDM: 17:15 CBC Ordered. EDMS 18:08 CBC Reviewed. 08/19 18:36 T-Sheet-- Draft Copy was scanned into [employer] and attached to record. klr Signatures: Dispatcher [employer] EDMS Ez Esparza, MOTION STUDY ANALYST MOTION STUDY ANALYST Syl Jurado RN RN ck1 Hailey Paulino RN RN ttNicole Rodriguez The chart was reviewed and I authenticate all verbal orders and agree with the evaluation and treatment provided.Corrections: (The following items were deleted from the chart) 08/18 17: 17:15 TYPE & SCREEN+BBK ordered. EDMS EDMS 17:24 17:15 HCG, SERUM QUANTITATIVE+LAB ordered. EDMS EDMS Attachments: 08/19 18:36 T-Sheet-- Draft Copy moo Chart Complete MTDD
--- NOTE | 2016-08-20 19:31 | EDDOCDS ---
Nurse's Notes [facility] Name: Marylu Morton Age: 25 yrs Sex: Female : 1990 Arrival Date: 08/18/2016 Time: 17:06 Bed 7 Private MD: NO PRIMARY PHYSICIAN, . Diagnosis: Threatened Presentation: 08/18 17:10 Presenting complaint: Patient states: Worsening vaginal bleeding, with lower abdominal ck1 pain. Patient is approximately 5 weeks . Seen here earlier today for same. Risk factors: The patient reports no loss of conciousness prior to arrival. This patient has not had a hysterectomy. This patient has not begun menopause. Adult Sepsis Screening: The patient does not have new or worsening altered mentation. Patient's respiratory rate is less than 22. Systolic blood pressure is greater than 100. Patient has a qSOFA score of 0- Negative Sepsis Screen. Suicide/Homicide risk assessment- the patient denies having any suicidal and/or homicidal ideations and does not present with any other emotional, behavioral or mental health complaints. Status: Patient is not a medical billing service or dependent. Transition of care: patient was not received from another setting of care. 17:10 Method Of Arrival: Walkin/Carried/Asstd ck1 17:10 Acuity: JOVANNY Level 3 ck1 Triage Assessment: 17:12 General: Appears in no apparent distress, comfortable, Behavior is appropriate for age, ck1 cooperative. Pain: Location: abdomen Pain currently is 1 out of 10 on a pain scale. HIV screening NA for this visit Offered previously. : Reports vaginal bleeding that is bright red with clots moderate flow. Derm: Skin is pink, warm & dry. 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 Vitamin Oral 1 tab once daily - PMHx: none; - PSHx: Adenoidectomy; Tonsillectomy; left ear; - Social history: Smoking status: Patient states former smoker of tobacco. No barriers to communication noted, The patient speaks fluent Telugu, Speaks appropriately for age. - Family history: Not pertinent. - : The pt / caregiver states he / she is not on anticoagulants. Home medication list is obtained from the patient. - Exposure Risk Screening:: None identified. Screenin:57 Screening information is obtained from the patient. Fall risk: No risks identified. ttb Assistance ADL's: requires no assistance with activities of daily living. Abuse/DV Screen: The patient / caregiver reports he/she is: not in a situation that causes fear, pain or injury. Nutritional screening: No deficits noted. Advance Directives: Currently, there is no health care proxy. home support is adequate. Assessment: 17:57 General: Appears in no apparent distress, well nourished, well groomed, Behavior is ttb appropriate for age, cooperative, pleasant. Pain: Denies pain. Neurological: Level of Consciousness is awake, alert. Cardiovascular: Chest pain is denied. Respiratory: Airway is patent Respiratory effort is even, unlabored, Denies cough, shortness of breath. GI: Denies nausea, vomiting, pain. : Urine is pt states heavier blood flow when she got home. Passed clot and now feels better. Derm: Skin is normal. Injury Description: No known injury. 18:29 Reassessment: Patient appears in no apparent distress at this time. PAVING SUPERVISOR in to speak with ttb pt. Pt ready for DC at this time.. Vital Signs: 17:07 BP 132 / 66; Pulse 104; Resp 20; Temp 99.5(O); Pulse Ox 99% on R/A; Weight 61.23 kg; elp Height 5 ft. 3 in. (160.02 cm); 18:29 BP 131 / 79; Pulse 104; Resp 18; Temp 99.0; Pulse Ox 96% on R/A; Pain 0/10; ttb 17:07 Body Mass Index 23.91 (61.23 kg, 160.02 cm) [facility] Vitals: 17:07 Log In Time: August 18, 2016 at 17:06. [facility] ED Course: 17:07 Patient visited by Gali Gutierrez PCA. elp 17:07 NO PRIMARY PHYSICIAN, . is Private Physician. elp 17:07 Patient moved to Waiting elp 17:08 Patient visited by Gali Gutierrez PCA. elp 17:08 Patient moved to Pre RCE elp 17:12 Triage Initiated ck1 17:16 Patient moved to 7 ck1 17:18 Ez Esparza FNP is [facility]. ke 17:18 Patient visited by Ez Esparza FNP. ke 17:18 Patient visited by Ez Esparza FNP. ke 17:51 Patient visited by Ez Esparza FNP. ke 17:57 The patient / caregiver is instructed regarding the plan of care and ED course. ttb Accompanied by Significant Other, Patient has correct armband on for positive identification. Placed in gown. Call light in reach. 17:57 CBC Sent. ttb 17:57 No IV's were initiated during this patient's visit. No procedures done that require ttb assistance. Labs drawn. (by ED staff). 18:11 Ajay Day MD is Referral Physician. ke 08/19 18:36 T-Sheet-- Draft Copy was scanned into [employer] and attached to record. klr Order Results: Lab Order: CBC; SPEC'M 08/18/16 17:53 Test: WHITE BLOOD COUNT; Value: 8.1; Range: 4.0-10.0; Units: K/mm3; Status: F Test: RED BLOOD COUNT; Value: 4.50; Range: 4.00-5.40; Units: M/mm3; Status: F Test: HEMOGLOBIN; Value: 13.3; Range: 12.0-16.0; Units: g/dl; Status: F Test: HEMATOCRIT; Value: 38.2; Range: 36.0-47.0; Units: %; Status: F Test: MEAN CORPUSCULAR VOLUME; Value: 84.9; Range: 80.0-96.0; Units: fl; Status: F Test: MEAN CORPUSCULAR HEMOGLOBIN; Value: 29.6; Range: 27.0-33.0; Units: pg; Status: F Test: MEAN CORPUSCULAR HGB CONC; Value: 34.8; Range: 32.0-36.5; Units: g/dl; Status: F Test: RED CELL DISTRIBUTION WIDTH; Value: 11.7; Range: 11.5-14.5; Units: %; Status: F Test: PLATELET COUNT, AUTOMATED; Value: 350; Range: 150-450; Units: k/mm3; Status: F Outcome: 08/18 17:57 No special radiology studies were completed. ttb 18:11 Discharge ordered by Provider. ke 18:29 Discharge Assessment: Patient awake, alert and oriented x 3. No cognitive and/or ttb functional deficits noted. Patient verbalized understanding of disposition instructions. Patient awake and alert. patient administered narcotics - no. The following High Risk Discharge criteria are identified: None. Discharged to home ambulatory, with significant other. Condition: good Condition: stable Condition: improved. Discharge instructions given to patient, significant other, Instructed on discharge instructions, follow up and referral plans. medication usage, diet, safe sex practices, safety practices, Demonstrated understanding of instructions, medications, no heavy lifting, strenuous exercise, increase fluids Pt was receptive of discharge instructions/ teaching. Property :Personal belongings accompany Pt. 18:30 Patient left the ED. ttb Signatures: Ez Esparza, PACKING MACHINE OPERATOR PACKING MACHINE OPERATOR Syl JuradoRN RN ck1 Hailey Paulino, RN RN ttb Gali Gutierrez PCA PCA elp Redder, Kathie klr Chart Complete MTDAron
--- NOTE | 2016-08-20 19:31 | EDDOCDS ---
Physician Documentation [facility] Name: Marylu Morton Age: 25 yrs Sex: Female : 1990 Arrival Date: 08/18/2016 Time: 17:06 Bed 7 Private MD: NO PRIMARY PHYSICIAN, . Disposition: 08/18/16 18:11 Discharged to Home/Self Care. Impression: Threatened . - Condition is Stable. - Discharge Instructions: Threatened Miscarriage, Pelvic Rest. - Medication Reconciliation, Local Pharmacy Hours form. - Follow up: Ajay Day MD; When: Call to arrange an appointment; Reason: Recheck today's complaints, Continuance of care. - Problem is an ongoing problem. - Symptoms are unchanged. Historical: - Allergies: No known drug Allergies; - Home Meds: 1. Vitamin Oral 1 tab once daily - PMHx: none; - PSHx: Adenoidectomy; Tonsillectomy; left ear; - Social history: Smoking status: Patient states former smoker of tobacco. No barriers to communication noted, The patient speaks fluent Belarusian, Speaks appropriately for age. - Family history: Not pertinent. - : The pt / caregiver states he / she is not on anticoagulants. Home medication list is obtained from the patient. - Exposure Risk Screening:: None identified. 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 3 in. (160.02 cm); 18:29 BP 131 / 79; Pulse 104; Resp 18; Temp 99.0; Pulse Ox 96% on R/A; Pain 0/10; ttb 17:07 Body Mass Index 23.91 (61.23 kg, 160.02 cm) elp MDM: 17:15 CBC Ordered. EDMS 18:08 CBC Reviewed. 08/19 18:36 T-Sheet-- Draft Copy was scanned into [employer] and attached to record. klr Signatures: Dispatcher [employer] EDMS Ez Esparza, BELLMAKER BELLMAKER Syl Jurado RN RN ck1 Hailey Paulino RN RN ttNicole Rodriguez The chart was reviewed and I authenticate all verbal orders and agree with the evaluation and treatment provided.Corrections: (The following items were deleted from the chart) 08/18 17: 17:15 TYPE & SCREEN+BBK ordered. EDMS EDMS 17:24 17:15 HCG, SERUM QUANTITATIVE+LAB ordered. EDMS EDMS Attachments: 08/19 18:36 T-Sheet-- Draft Copy moo Chart Complete MTDD
== END 2016-08-18 18:30 | disposition home or self-care (01) ==
LOC: M ED 17:06
DX: O20.0 Threatened abortion (principal); Z3A.01 Less than 8 weeks gestation of pregnancy; Z87.891 Personal history of nicotine dependence; Z79.899 Other long term (current) drug therapy

== ENCOUNTER → 2016-08-20 | Outpatient (CLI) | payer OTHER | LOC: M LAB 16:08 | PROVIDERS: ATTEND Student in an Organized Health Care Education/Training Program | DX: Z32.00 Encounter for pregnancy test, result unknown (principal) ==

== ENCOUNTER → 2016-12-01 | Outpatient (CLI) | payer OTHER | LOC: M WUC 18:24 | PROVIDERS: ATTEND Physician Assistant | DX: R10.30 Lower abdominal pain, unspecified (principal) ==

== ENCOUNTER → 2016-12-02 | Outpatient (CLI) | payer OTHER ==
--- NOTE | 2016-12-02 15:51 | REP ---
FIRST TRIMESTER ULTRASOUND: Real-time sonographic evaluation of the gravid uterus performed utilizing transabdominal and endovaginal technique. Uterus measures 9.9 x 3.8 x 6.3 cm. Within the endometrial cavity there is a rounded gestational sac which appears to contain a yolk sac, mean sac diameter is 4 mm corresponding to an estimated gestational age of 5 weeks 1 day. Again the gestational sac contains a yolk sac, but no pole is seen. Separate area of endometrial fluid measures 1.2 x 0.4 x 0.9 cm. Right ovary measures 2.8 x 1.6 x 2.7 cm and left ovary 3.5 x 3.0 x 3.5 cm. Cystic structure in the left ovary probably represents a corpus luteum 1.8 x 1.9 x 1.5 cm. There is no free fluid or other evidence of adnexal mass. There is blood flow seen in each ovary with duplex Doppler evaluation, with no torsion, RI right ovary 0.55 and left ovary 0.56. IMPRESSION: Likely early intrauterine gestation 5 weeks 1 day gestational age, with intrauterine gestational sac containing a yolk sac. Suggest followup ultrasound in 10 to 14 days to document viability. There appears to be a corpus luteum of the left ovary 1.9 cm in diameter. No torsion. Signed by Shawn Chavarria MD 12/02/2016 04:23 P
== END ==
LOC: M RAD 14:37
PROVIDERS: ATTEND Obstetrics & Gynecology
DX: O20.0 Threatened abortion (principal); Z3A.00 Weeks of gestation of pregnancy not specified

== ENCOUNTER → 2016-12-03 | Outpatient (REF) | payer OTHER | LOC: M LABDRWAD 10:16 | PROVIDERS: ATTEND Advanced Practice Midwife | DX: N93.8 Other specified abnormal uterine and vaginal bleeding (principal) ==

== ENCOUNTER → 2016-12-09 | Outpatient (CLI) | payer OTHER | LOC: M SMT 11:33 | PROVIDERS: ATTEND Specialist | DX: N93.8 Other specified abnormal uterine and vaginal bleeding (principal) ==

== ENCOUNTER → 2017-03-24 | Outpatient (CLI) | payer OTHER | LOC: M LAB 11:27 | PROVIDERS: ATTEND Advanced Practice Midwife | DX: O20.0 Threatened abortion (principal); Z3A.00 Weeks of gestation of pregnancy not specified ==

== ENCOUNTER → 2017-03-26 | Outpatient (CLI) | payer OTHER | LOC: M LAB 12:07 | PROVIDERS: ATTEND Advanced Practice Midwife | DX: O20.0 Threatened abortion (principal); Z3A.00 Weeks of gestation of pregnancy not specified ==

== ENCOUNTER → 2017-04-07 | Outpatient (REF) | payer OTHER | LOC: M LAB REF 13:28 | PROVIDERS: ATTEND Advanced Practice Midwife | DX: Z12.4 Encounter for screening for malignant neoplasm of cervix (principal) ==

== ENCOUNTER → 2017-04-07 | Outpatient (CLI) | payer OTHER ==
[2017-04-07 18:52] LABS: CONTROL LINE HCG INT CTR LINE PRESENT
[2017-04-07 20:36] LABS: T UPTAKE 37 % (30-39); THYROXINE (T4) 9.3 UG/DL (4.5-12.0)
== END ==
LOC: M SMT 13:35
PROVIDERS: ATTEND Advanced Practice Midwife
DX: N96 Recurrent pregnancy loss (principal)

== ENCOUNTER → 2017-05-20 | Outpatient (CLI) | payer OTHER ==
[2017-05-20 19:37] LABS: ESTRADIOL 109.7 PG/ML; PROGESTERONE 6.5 NG/ML
== END ==
LOC: M WUC 16:44
PROVIDERS: ATTEND Advanced Practice Midwife
DX: N96 Recurrent pregnancy loss (principal)

== ENCOUNTER 2017-10-30 10:30 | Emergency (ER) | payer OTHER ==
[2017-10-30] MEDS: METOCLOPRAMIDE INJ 10MG/2ML VIAL (J2765) IV (11:00)
[2017-10-30] MEDS: NS 1,000 ML IV (11:00)
[2017-10-30 11:18] LABS: BASO % 0.3 % (0.0-1.0); EOS % 0.4 % (0.0-3.0); HEMATOCRIT 40.6 % (36.0-47.0); HEMOGLOBIN 14.1 g/dl (12.0-15.5); IMMATURE GRANULOCYTE % 0.4 % (0-3.0); KETONE, URINE AUTO RFX NEGATIVE (NEGATIVE); LEUKOCYTE ESTERASE UR AUTO RFX NEGATIVE (NEGATIVE); LYMPH % 22.4 % (24.0-44.0); MEAN CORPUSCULAR HEMOGLOBIN 30.1 pg (27.0-33.0); MEAN CORPUSCULAR HGB CONC 34.7 g/dl (32.0-36.5); MEAN CORPUSCULAR VOLUME 86.6 fl (80.0-96.0); MONO # 0.7 10^3/uL (0.0-0.8); MONO % 7.5 % (0.0-5.0); NEUTROPHILS # 6.3 10^3/uL (1.8-7.7); NITRITE, URINE AUTO RFX NEGATIVE (NEGATIVE); PLATELET COUNT, AUTOMATED 398 10^3/uL (150-450); RBC, URINE AUTO RFX 0 /HPF (0-3); RED BLOOD COUNT 4.69 10^6/uL (4.00-5.40); RED CELL DISTRIBUTION WIDTH 11.6 % (11.5-14.5); SQUAM EPITHELIAL CELL UR AURFX 0 /HPF (0-6); WBC, URINE AUTO RFX 1 /HPF (0-3); WHITE BLOOD COUNT 9.1 10^3/uL (4.0-10.0)
[2017-10-30 11:48] LABS: ALBUMIN 4.4 GM/DL (3.2-5.2); ALBUMIN/GLOBULIN RATIO 1.13 (1.00-1.93); ALKALINE PHOSPHATASE 64 U/L (45-117); ALT/SGPT 19 U/L (12-78); ANION GAP 7 MEQ/L (8-16); AST/SGOT 16 U/L (7-37); BILIRUBIN,TOTAL 0.6 MG/DL (0.2-1.0); BLOOD UREA NITROGEN 9 MG/DL (7-18); CARBON DIOXIDE LEVEL 27 MEQ/L (21-32); CHLORIDE LEVEL 105 MEQ/L (98-107); CREATININE FOR GFR 0.76 MG/DL (0.55-1.30); GLOMERULAR FILTRATION RATE > 60.0 (>60); GLUCOSE, FASTING 94 MG/DL (70-100); HCG, SERUM QUANTITATIVE 2761 MIU/ML; POTASSIUM SERUM 3.6 MEQ/L (3.5-5.1); SODIUM LEVEL 139 MEQ/L (136-145); TOTAL PROTEIN 8.3 GM/DL (6.4-8.2)
== END 2017-10-30 12:52 | disposition home or self-care (01) ==
LOC: M ED 10:30
DX: O26.851 Spotting complicating pregnancy, first trimester (principal); O26.891 Other specified pregnancy related conditions, first trimester; R10.2 Pelvic and perineal pain; Z3A.01 Less than 8 weeks gestation of pregnancy; Z98.890 Other specified postprocedural states
CPT/HCPCS: 76801

== ENCOUNTER 2017-12-05 13:11 | Emergency (ER) | payer OTHER | END 2017-12-05 15:05 | disposition left against medical advice (07) | LOC: M ED 13:11 | DX: Z53.29 Procedure and treatment not carried out because of patient's decision for other reasons (principal) ==

== ENCOUNTER → 2018-01-03 | Outpatient (REF) | payer OTHER ==
[2018-01-03 13:26] LABS: HEMATOCRIT 34.6 % (36.0-47.0); HEMOGLOBIN 12.2 g/dl (12.0-15.5); MEAN CORPUSCULAR HEMOGLOBIN 31.3 pg (27.0-33.0); MEAN CORPUSCULAR HGB CONC 35.3 g/dl (32.0-36.5); MEAN CORPUSCULAR VOLUME 88.7 fl (80.0-96.0); PLATELET COUNT, AUTOMATED 284 10^3/uL (150-450); RED CELL DISTRIBUTION WIDTH 11.9 % (11.5-14.5); WHITE BLOOD COUNT 6.8 10^3/uL (4.0-10.0)
[2018-01-03 15:09] LABS: CHLAMYDIA DNA AMPLIFICATION NEGATIVE (NEGATIVE); GC DNA AMPLIFICATION NEGATIVE (NEGATIVE)
[2018-01-04 11:31] LABS: RUBELLA IgG QUALITATIVE IMMUNE (IMMUNE)
[2018-01-04 11:43] LABS: HEPATITIS B SURFACE ANTIGEN NEGATIVE (NEGATIVE)
[2018-01-04 12:01] LABS: HEPATITIS C VIRUS ABY INDEX 0.1 INDEX (<0.8)
[2018-01-04 12:03] LABS: HIV 1&2 SCREEN CENTAUR NEGATIVE (NEGATIVE)
== END ==
LOC: M LAB REF 12:55
DX: Z34.81 Encounter for supervision of other normal pregnancy, first trimester (principal); Z3A.00 Weeks of gestation of pregnancy not specified
CPT/HCPCS: 86762

== ENCOUNTER → 2018-02-20 | Outpatient (REF) | payer OTHER | LOC: M LAB REF 16:57 | DX: Z34.82 Encounter for supervision of other normal pregnancy, second trimester (principal) ==

== ENCOUNTER → 2018-04-11 | Outpatient (CLI) | payer OTHER ==
[2018-04-11 16:31] LABS: GLUCOSE CHALLENGE TEST 1 HOUR 132 MG/DL (LESS THAN 140)
== END ==
LOC: M LAB 15:19
DX: Z34.82 Encounter for supervision of other normal pregnancy, second trimester (principal); Z3A.00 Weeks of gestation of pregnancy not specified
CPT/HCPCS: 82950

== ENCOUNTER → 2018-04-17 | Outpatient (REF) | payer OTHER ==
[2018-04-17 14:03] LABS: HEMATOCRIT 32.4 % (36.0-47.0); HEMOGLOBIN 11.4 g/dl (12.0-15.5); MEAN CORPUSCULAR HGB CONC 35.2 g/dl (32.0-36.5); PLATELET COUNT, AUTOMATED 276 10^3/uL (150-450); RED BLOOD COUNT 3.56 10^6/uL (4.00-5.40); RED CELL DISTRIBUTION WIDTH 12.5 % (11.5-14.5); WHITE BLOOD COUNT 8.5 10^3/uL (4.0-10.0)
== END ==
LOC: M LAB REF 13:45
DX: Z34.82 Encounter for supervision of other normal pregnancy, second trimester (principal); Z3A.00 Weeks of gestation of pregnancy not specified
CPT/HCPCS: 85027

== ENCOUNTER → 2018-05-31 | Outpatient (REF) | payer OTHER | LOC: M LAB REF 16:42 | DX: Z34.83 Encounter for supervision of other normal pregnancy, third trimester (principal); Z36.85 Encounter for antenatal screening for Streptococcus B | CPT/HCPCS: 87081 ==

== ENCOUNTER 2018-06-23 12:16 | Inpatient (IN) | payer OTHER ==
[~2018-06-23] VITALS: Ht 160 cm; Wt 66.6 kg
[2018-06-23] VITALS (20 sets, daily range): BP systolic 107–155; BP diastolic 59–87
[~2018-06-23 12:16] MED LIST changes: -ACET50TA PO; +MAPA500T17 PO; +REGL10TA6 PO
[2018-06-23] MEDS ORDERED: LR 1,000 ML IV SCH (12:30)
[2018-06-23] MEDS ORDERED: LACTATED RINGER'S 1000 ML IV ONE (12:30)
[2018-06-23 13:06] LABS: HEMATOCRIT 33.6 % (36.0-47.0); HEMOGLOBIN 11.9 g/dl (12.0-15.5); MEAN CORPUSCULAR HEMOGLOBIN 29.9 pg (27.0-33.0); MEAN CORPUSCULAR HGB CONC 35.4 g/dl (32.0-36.5); MEAN CORPUSCULAR VOLUME 84.4 fl (80.0-96.0); PLATELET COUNT, AUTOMATED 279 10^3/uL (150-450); RED BLOOD COUNT 3.98 10^6/uL (4.00-5.40); WHITE BLOOD COUNT 8.5 10^3/uL (4.0-10.0)
[2018-06-23] MEDS ORDERED: OXYTOCIN DRIP 30 UNITS in APPROPRIATE DILUENT 1 EA IV SCH ×2 (14:15→19:00)
[2018-06-23] MEDS ORDERED: FENTANYL 2MCG/ML ROPIVACAINE 0.2% IN 0.9% NACL 100ML IVBAG As Ordered ONE (16:26)
[2018-06-23] MEDS ORDERED: ePHEDrine SULFATE 25 MG/5 ML(5MG/ML) SYRINGE IV PRN (17:30)
[2018-06-23] MEDS ORDERED: EPIDURAL COMMENT XX SCH (17:30)
[2018-06-23] MEDS ORDERED: ONDANSETRON 4MG/2ML VIAL (J2405) IV PRN (17:30)
[2018-06-23] MEDS ORDERED: diphenhydrAMINE INJ 50MG/ML VIAL (J1200) IV PRN (17:30)
[2018-06-23] MEDS ORDERED: EPIDURAL/PCA KEYS XX PRN (17:30)
[2018-06-23] MEDS ORDERED: FENTANYL/ROPIVACAINE/NACL BAG 100 ML EPIDURAL SCH (17:30)
[2018-06-23] MEDS ORDERED: REFRIGERATOR IV KEYS XX PRN (17:30)
[2018-06-23] MEDS ORDERED: LACTATED RINGER'S 1000 ML IV PRN (17:30)
[2018-06-23] MEDS ORDERED: NALOXONE INJ 0.4 MG/1 ML VIAL (J2310) IV PRN (17:30)
[2018-06-23 18:38] LABS: CORD GAS ABE V -2.3; CORD GAS HCO3 V 23.1 MEQ/L; CORD GAS O2 SAT V 66.1 %; CORD GAS PCO2 V 41.9 mmHg; CORD GAS PH V 7.359 UNITS; CORD GAS PO2 V 29.1 mmHg; CORD GAS SBC V 21.8 MEQ/L; CORD GAS TCO2 V 24.4 MEQ/L
[2018-06-23] MEDS ORDERED: MEASLES,MUMPS,RUBELLA VACCINE INJ (MMR-II) (90707) SC SCH (19:00)
[2018-06-23] MEDS ORDERED: ANUSOL HC CREAM 30GM TOP PRN (19:00)
[2018-06-23] MEDS ORDERED: DOCUSATE SODIUM 100 MG CAP PO PRN (19:00)
[2018-06-23] MEDS ORDERED: RHOGAM 300 MCG (1500 IU) INJ (J2790) IM SCH (19:00)
[2018-06-23] MEDS ORDERED: ACETAMINOPHEN 500 MG TAB PO PRN (19:00)
[2018-06-23] MEDS ORDERED: METHYLERGONOVINE MALEATE 0.2 MG TAB PO PRN (19:00)
[2018-06-23] MEDS ORDERED: DIBUCAINE 1% OINTMENT 30GM TOP PRN (19:00)
[2018-06-24] MEDS: IBUPROFEN 800 MG TAB PO PRN ×2 (03:21→17:15)
[2018-06-24 05:59] VITALS: BP 110/76
[2018-06-24] MEDS: PRENATAL VITAMINS CHEWABLE TABLET PO SCH (09:00)
--- NOTE | 2018-06-24 11:01 | HPE ---
DATE OF ADMISSION: 06/23/2018 Marylu is a 27-year-old female 8, para 1-0-6-1 with an estimated date of confinement (EDC) of 06/28/2018, estimated gestational age 39-3/7 weeks gestation who is being admitted to labor and delivery after presenting with complaint of contractions. She was found to be in active labor. At this point, a decision was made for admission. Her record was reviewed, which was essentially unremarkable. LABS: Blood type is A+, rubella immune, hepatitis negative, HIV negative, GC and chlamydia negative, 1-hour sugar testing was within normal limits. Her Group B streptococcus (GBS) is negative. PAST MEDICAL HISTORY: Denies. PAST SURGICAL HISTORY: Tonsillectomy. SOCIAL HISTORY: She denies any alcohol or drug use. She is . She is a former smoker. FAMILY HISTORY: Significant for Alzheimer's, hypertension, hypercholesterolemia, as well as depression. MEDICATIONS: vitamins. ALLERGIES: NO KNOWN DRUG ALLERGIES. PHYSICAL EXAMINATION: HEENT: Grossly within normal limits. ABDOMEN: Soft, nontender, nondistended. EXTREMITIES: No clubbing, cyanosis or edema. Vaginal exam is 4-5 cm dilated, 80%, fetus at -2 station in vertex position. Tracing reviewed, category 1 tracing. ASSESSMENT: Intrauterine at 39-3/7 weeks gestation in active labor. PLAN: Admit to labor and delivery. Routine labs sent. Pain management discussed. The patient opts for an epidural. We will continue to monitor. Anticipate delivery.
--- NOTE | 2018-06-24 12:03 | CR ---
DATE OF CONSULTATION: 06/23/2018 Nelly is a 27-year-old female 8, para 1-0-6-1 who is admitted at 39 weeks 3/7 weeks gestation in active labor. She progressed to fully dilated after artificial rupture of membranes. Then delivered a live female infant in left occiput anterior position over an intact perineum. 8 and 9. weight 7 pounds 7 ounces. Placenta delivered spontaneously intact. Three-vessel cord. A first-degree midline perineal laceration was noted which was repaired using 2-0 chromic. Estimated blood loss 200 mL. Both mother and baby in stable condition.
[2018-06-24 18:04] VITALS: BP 117/64
[2018-06-25 06:00] VITALS: BP 133/82
[2018-06-25] MEDS: IBUPROFEN 800 MG TAB PO PRN (08:02)
[2018-06-25] MEDS: PRENATAL VITAMINS CHEWABLE TABLET PO SCH (08:02)
[2018-06-25] MEDS ORDERED: MAPA500T17 PO (13:32)
[2018-06-25] MEDS ORDERED: IBUP-1114 PO (13:32)
== END 2018-06-25 14:15 | disposition home or self-care (01) | DRG 560 ==
LOC: M LDI 12:16 → M OBS 21:16
PROVIDERS: ADMIT Obstetrics & Gynecology; ATTEND Obstetrics & Gynecology
PROC: 10E0XZZ Delivery of Products of Conception, External Approach (ICD-10-PCS; principal; 2018-06-23)
PROC: 0HQ9XZZ Repair Perineum Skin, External Approach (ICD-10-PCS; 2018-06-23)
PROC: 10907ZC Drainage of Amniotic Fluid, Therapeutic from Products of Conception, Via Natural or Artificial Opening (ICD-10-PCS; 2018-06-23)
DX: O70.0 First degree perineal laceration during delivery (principal); Z87.891 Personal history of nicotine dependence; Z37.0 Single live birth; Z3A.39 39 weeks gestation of pregnancy

== ENCOUNTER → 2018-11-17 | Outpatient (CLI) | payer OTHER ==
[~2018-11-17] MED LIST changes: +IBUP-1114 PO; -MAPA500T17 PO; +MAPA500T2 PO
--- NOTE | 2018-11-17 10:22 | REP ---
Clinical: Anemia . Comparison: None . Technique: PA and lateral. Findings: The mediastinum and cardiac silhouette are normal. The lung bello are clear and without acute consolidation, effusion, or pneumothorax. The skeletal structures are intact and normal. Impression: 1. No acute cardiopulmonary process. Electronically Signed by Everett Howell MD 11/17/2018 10:13 A
[2018-11-17 10:31] LABS: HEMATOCRIT 39.9 % (36.0-47.0); HEMOGLOBIN 13.7 g/dl (12.0-15.5); MEAN CORPUSCULAR HEMOGLOBIN 29.4 pg (27.0-33.0); MEAN CORPUSCULAR HGB CONC 34.3 g/dl (32.0-36.5); MEAN CORPUSCULAR VOLUME 85.6 fl (80.0-96.0); PLATELET COUNT, AUTOMATED 373 10^3/uL (150-450); RED BLOOD COUNT 4.66 10^6/uL (4.00-5.40); WHITE BLOOD COUNT 7.7 10^3/uL (4.0-10.0)
[2018-11-17 11:11] LABS: ALBUMIN 4.5 GM/DL (3.2-5.2); ALT/SGPT 13 U/L (12-78); BILIRUBIN,TOTAL 0.7 MG/DL (0.2-1.0); BLOOD UREA NITROGEN 11 MG/DL (7-18); CALCIUM LEVEL 9.3 MG/DL (8.5-10.1); CARBON DIOXIDE LEVEL 27 MEQ/L (21-32); CHLORIDE LEVEL 106 MEQ/L (98-107); CHOLESTEROL LEVEL 181 MG/DL (<200); CHOLESTEROL RISK RATIO 2.661 (<5); CREATININE FOR GFR 0.88 MG/DL (0.55-1.30); GLOMERULAR FILTRATION RATE > 60.0 (>60); GLUCOSE, FASTING 78 MG/DL (70-100); HDL CHOLESTEROL 68 MG/DL (>40); LDL CHOLESTEROL 97 MG/DL (<100); NON-HDL-C 113 MG/DL; POTASSIUM SERUM 3.9 MEQ/L (3.5-5.1); SODIUM LEVEL 140 MEQ/L (136-145); TOTAL PROTEIN 7.2 GM/DL (6.4-8.2); TRIGLYCERIDES LEVEL 79 MG/DL (<150)
--- NOTE | 2018-11-17 13:01 | ECGEPIP ---
[facility] Test Date: 2018-11-17 Pat Name: FRANK BRAVO Department: Room: - Gender: Female Computer Architect: JASON : 1990 Requested By: Jailene Fair Order Number: [id number] Reading MD: Alesia Rubio Measurements Intervals [place] Rate: 64 P: 17 NC: 159 QRS: 66 QRSD: 95 T: 38 QT: 373 QTc: 385 Interpretive Statements SINUS RHYTHM NORMAL BORDERLINE LIMB LEAD VOLT Electronically Signed on 11-17-2018 13:00:36 EDT by Alesia Rubio
== END ==
LOC: M LAB 09:39
PROVIDERS: ATTEND Family Medicine
DX: D64.9 Anemia, unspecified (principal); E03.9 Hypothyroidism, unspecified

== ENCOUNTER → 2020-05-01 | Outpatient (REF) | payer OTHER ==
[2020-05-01 13:49] LABS: BASO % 0.7 % (0.0-1.0); EOS # 0.1 10^3/uL (0.0-0.5); EOS % 1.1 % (0.0-3.0); HEMATOCRIT 40.7 % (36.0-47.0); HEMOGLOBIN 13.8 g/dl (12.0-15.5); LYMPH # 1.8 10^3/uL (1.5-5.0); MEAN CORPUSCULAR HEMOGLOBIN 29.8 pg (27.0-33.0); MEAN CORPUSCULAR HGB CONC 33.9 g/dl (32.0-36.5); MEAN CORPUSCULAR VOLUME 87.9 fl (80.0-96.0); MONO # 0.5 10^3/uL (0.0-0.8); MONO % 8.7 % (0.0-5.0); NEUTROPHILS # 3.1 10^3/uL (1.5-8.5); NEUTROPHILS % 56.3 % (36.0-66.0); PLATELET COUNT, AUTOMATED 319 10^3/uL (150-450); RED BLOOD COUNT 4.63 10^6/uL (4.00-5.40); WHITE BLOOD COUNT 5.5 10^3/uL (4.0-10.0)
[2020-05-01 14:22] LABS: ALBUMIN 4.7 GM/DL (3.2-5.2); ALT/SGPT 14 U/L (12-78); BILIRUBIN,TOTAL 1.1 MG/DL (0.2-1.0); BLOOD UREA NITROGEN 10 MG/DL (7-18); CALCIUM LEVEL 9.4 MG/DL (8.5-10.1); CARBON DIOXIDE LEVEL 26 MEQ/L (21-32); CHLORIDE LEVEL 106 MEQ/L (98-107); COMPLEMENT C3 89 MG/DL (90-180); COMPLEMENT C4 15 MG/DL (10-40); CREATININE FOR GFR 0.86 MG/DL (0.55-1.30); FERRITIN 65 NG/ML (8-252); GLOMERULAR FILTRATION RATE > 60.0 (>60); GLUCOSE, FASTING 83 MG/DL (70-100); IRON (FE) 145 UG/DL (50-170); PHOSPHORUS LEVEL 2.8 MG/DL (2.5-4.9); POTASSIUM SERUM 4.1 MEQ/L (3.5-5.1); RHEUMATOID FACTOR QUANT < 10.0 IU/ML (<15.0); SODIUM LEVEL 137 MEQ/L (136-145); TOTAL PROTEIN 7.1 GM/DL (6.4-8.2)
[2020-05-01 14:27] LABS: TOTAL 25(OH) VITAMIN D 21.1 NG/ML (30.0-100.0); VITAMIN B12 LEVEL 528 PG/ML
[2020-05-01 14:28] LABS: FOLATE 14.6 NG/ML
[2020-05-01 14:57] LABS: ERYTHROCYTE SEDIMENTATION RATE 3 mm/hr (0-20)
== END ==
LOC: M SFHCRHEU 09:53
PROVIDERS: ATTEND Internal Medicine
DX: M25.50 Pain in unspecified joint (principal)

== ENCOUNTER → 2020-05-05 | Outpatient (CLI) | payer OTHER ==
--- NOTE | 2020-05-05 18:03 | REP ---
INDICATION: RT HIP PAIN. COMPARISON: None. None. TECHNIQUE: A single AP view of the pelvis was performed. Two views of the right hip were performed. FINDINGS: The hip joint spaces are symmetric and relatively well maintained. There is no acute fracture or destructive osseous lesion. IMPRESSION: Negative exam <Electronically signed by Michi Azul > 05/05/20 1800
--- NOTE | 2020-05-05 18:06 | REP ---
INDICATION: SACROILIAC PAIN. COMPARISON: None. FINDINGS: Three views of the sacroiliac joints show them to be non-fused. There is no lysis or sclerosis of either the sacral or iliac side of either SI joint. There is no evidence of whiskering. There is no prominent osteophytosis. IMPRESSION: SI joints within normal limits. <Electronically signed by Michi Azul > 05/05/20 [id number]
== END ==
LOC: M RAD 16:55
PROVIDERS: ATTEND Internal Medicine
DX: M53.3 Sacrococcygeal disorders, not elsewhere classified (principal); M25.551 Pain in right hip

== ENCOUNTER → 2020-06-30 | Outpatient (CLI) | payer SELFPAY | LOC: M LABSMTC 11:41 | PROVIDERS: ATTEND Pediatrics | DX: Z20.828 Contact with and (suspected) exposure to other viral communicable diseases (principal) ==

== ENCOUNTER → 2021-03-30 | Outpatient (REF) | LOC: M LABSMTC 10:07 | PROVIDERS: ATTEND Pediatrics | DX: Z11.52 Encounter for screening for COVID-19 (principal) ==

== ENCOUNTER → 2021-05-01 | Outpatient (CLI) | payer OTHER ==
--- NOTE | 2021-05-01 13:28 | REP ---
INDICATION: LUMBAGO WITH SCIATICA, LEFT SIDE / LAB 1ST. COMPARISON: None. TECHNIQUE: Five views FINDINGS: Five views of the lumbosacral spine show no acute fracture, dislocation or subluxation. The intervertebral disc spaces are symmetric and well maintained. There is no spondylolisthesis. The lateral view suggests the possibility of unilateral spondylolysis which cannot be confirmed on the oblique views. It may be right-sided if present. The pedicles are intact bilaterally and there is no destructive osseous lesion. IMPRESSION: Findings as described above. <Electronically signed by Michi Azul > 05/01/21 [id number]
[2021-05-01 13:40] LABS: HEMATOCRIT 39.5 % (36.0-47.0); HEMOGLOBIN 13.6 g/dl (12.0-15.5); MEAN CORPUSCULAR HEMOGLOBIN 30.3 pg (27.0-33.0); MEAN CORPUSCULAR HGB CONC 34.4 g/dl (32.0-36.5); PLATELET COUNT, AUTOMATED 297 10^3/uL (150-450); RED BLOOD COUNT 4.49 10^6/uL (4.00-5.40); WHITE BLOOD COUNT 6.8 10^3/uL (4.0-10.0)
[2021-05-01 14:20] LABS: ALBUMIN 4.5 GM/DL (3.2-5.2); ALT/SGPT 15 U/L (12-78); BILIRUBIN,TOTAL 1.2 MG/DL (0.2-1.0); BLOOD UREA NITROGEN 12 MG/DL (7-18); CALCIUM LEVEL 9.7 MG/DL (8.5-10.1); CARBON DIOXIDE LEVEL 26 MEQ/L (21-32); CHLORIDE LEVEL 104 MEQ/L (98-107); CHOLESTEROL LEVEL 155 MG/DL (<200); CHOLESTEROL RISK RATIO 2.152 (<5); CREATININE FOR GFR 0.82 MG/DL (0.55-1.30); FOLATE 16.6 NG/ML; FREE T4 1.06 NG/DL (0.76-1.46); GLOMERULAR FILTRATION RATE > 60.0 (>60); GLUCOSE, FASTING 74 MG/DL (70-100); HDL CHOLESTEROL 72 MG/DL (>40); LDL CHOLESTEROL 76 MG/DL (<100); NON-HDL-C 83 MG/DL; POTASSIUM SERUM 4.3 MEQ/L (3.5-5.1); SODIUM LEVEL 138 MEQ/L (136-145); TOTAL PROTEIN 7.4 GM/DL (6.4-8.2); TRIGLYCERIDES LEVEL 37 MG/DL (<150); VITAMIN B12 LEVEL 604 PG/ML
== END ==
LOC: M LAB 12:08
PROVIDERS: ATTEND Physician Assistant
DX: M54.59 Other low back pain (principal)